=== PATIENT | male | born 2000 | race Caucasian/White ===

== ENCOUNTER 2022-08-31 11:12 | Emergency (ER) | payer MEDICAID, SELFPAY ==
[2022-08-31 11:15] VITALS: BP 127/72; PULSE 52; RESP 18; TEMP 36.8; O2SAT 100
--- NOTE | 2022-08-31 11:28 | W.ED.GENAD ---
Discharge Plan Disposition Patient Disposition: HOME Condition: Stable Discharge Details Chief Complaint: EyeProblem Clinical Impression: Corneal abrasion, left Primary Care Provider: Unknown,Unknown ED Provider: Ryan Spence Discharge Instructions Instructions: Corneal Abrasion (ED) Additional Instructions: use the erythromycin 3 times a day for 5 days or until it's empty if pain continues Sunday see an bankruptcy law specialist or your primary care provider if you feel more ill, have changes in vision or fevers return to the emergency department Medical Decision Making 21 yo male who denies chronic medical problems comes in with left eye pain. 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 He irrigated the eye and didn't see a foreign body, pain lasted 3 hours and decided to come here. He denies vision changes or discharge, no deep eye pain. He arrives stable, 20/20 vision in the left eye. Has mild conjunctival injection on the left eye medially where he localizes the pain. Perrl, eomi, no pain with eye movement and no periorbital swelling. No foreign body visualized on exam even under eyelids, had immediate relief of pain with tetracaine. Flourescein staining done and reveals 1mm corneal abrasion of medial conjunctiva. Given findings do not feel further testing indicated, will provide prophylactic erythromycin and advised if pain continues to see optho, return precautions given Differential Diagnosis Differential Diagnosis: corneal abrasion, foreign body HPI General Mode of arrival: ambulatory. Date/Time Provider Initiated Documentation: 08/31/22 11:13. Limitations to Documentation: no limitations. Information obtained by: patient. History of Present Illness 21 year old M presents to the emergency department with the chief complaint of left eye pain, described as moderate, Patient started experiencing this hour(s) (3) and it has been constant. No relieving factors improve symptom(s), No exacerbating factors reported . Patient notes no other symptoms.. Patient did receive the following treatments prior to arrival, none Related Data Allergies Allergy/AdvReac Type Severity Reaction Status Date / Time amoxicillin Allergy Skin Rash Unverified 08/31/22 11:17 General Stated Complaint: EyeProblem LEIGHANN: 4 Review of Systems All systems reviewed & are unremarkable except as noted in HPI and below Constitutional Constitutional: Denies chills, Denies fever(s) and Denies weakness Eyes Eyes: Denies loss of vision Cardiovascular Cardiovascular: Denies chest pain and Denies dyspnea Respiratory Respiratory: Denies cough and Denies dyspnea Gastrointestinal Gastrointestinal: Denies abdominal pain and Denies vomiting Neurologic Neurologic: Denies loss of vision and Denies weakness PFSH All Active Problems (Updated 08/31/22 @ 11:40 by Ryan Spence MD) Corneal abrasion, left (Acute) Social History Smoking risk assessment performed?: No Drug use: Daily Substance use type: marijuana Do you feel safe at home: Yes Do you feel safe in your relationship?: Yes Exam Const General: no acute distress Orientation: alert HENMT Head: normal to inspection Ears: external ears normal General nose exam: external nose normal Mouth: moist mucous membranes Eyes Pupils: PERRL EOM: EOM intact bilaterally Neck Neck: normal visual inspection Resp Effort & Inspection: normal respiratory effort and able to speak in complete sentences Cardio Rate: regular rate Skin General skin exam: no rashes or lesions noted Neuro General: patient alert and patient oriented x3 Extrem General: normal to inspection Psych Mental Status: mental status grossly normal Course Vital Signs Vital signs: Vital Signs Temperature 36.8 C 08/31/22 11:15 Pulse 52 L 08/31/22 11:15 Respiratory Rate 18 08/31/22 11:15 Blood Pressure 127/72 08/31/22 11:15 Pulse Oximetry 100 08/31/22 11:15 Temperature 36.8 C 08/31/22 11:15 Pulse 52 L 08/31/22 11:15 Respiratory Rate 18 08/31/22 11:15 Respiratory Effort 08/31/22 11:24 Blood Pressure 127/72 08/31/22 11:15 Blood Pressure Position Sitting 08/31/22 11:15 Pulse Oximetry 100 08/31/22 11:15 PAWSS Have you Been Recently Intoxicated or Drunk Within the Last 30 days?: No Have you Ever Experienced Previous Episodes of Alcohol Withdrawal?: No Have you ever Experienced Withdrawal Seizures?: No Have you ever Experienced Delirium Tremens(DT)s?: No Have you ever undergone Alcohol Rehabilitation Treatment (i.e, inpt ot outpatient treatment programs)?: No Have you ever Experienced Blackouts?: No Have you ever Combined Alcohol with other Downers within the last 90 days?: No Have you ever Combined Alcohol with any other Substance of Abuse during the last 90 days?: No Positive Blood Alcohol level on Presentation? [PCS.BAL]: No Evidence of Increased Autonomic Activity (i.e. HR>120, tremor, sweating, agitation, nausea)?: No Result: 0
[2022-08-31 11:30] VITALS: BP 118/83; PULSE 70; RESP 10; O2SAT 97
[2022-08-31 11:34] VITALS: BP 118/74; PULSE 70; RESP 12; O2SAT 99
== END 2022-08-31 11:48 | disposition home or self-care (01) ==
PROVIDERS: Emergency Provider Emergency Medicine
DX: S05.02XA Injury of conjunctiva and corneal abrasion without foreign body, left eye, initial encounter (principal); X58.XXXA Exposure to other specified factors, initial encounter; Y93.01 Activity, walking, marching and hiking; Y92.69 Other specified industrial and construction area as the place of occurrence of the external cause; Y99.0 Civilian activity done for income or pay
CPT/HCPCS: 99283; 99284